=== PATIENT | female | born 1940 | race Caucasian/White ===

== ENCOUNTER → 2023-07-10 07:42 | Outpatient (REF) | payer MEDICARE, OTHER, SELFPAY ==
[2023-07-10 08:08] LABS: % Basophils 0.8 % (0-2); % Eosinophils 2.4 % (0-6); % Immature Granulocytes 0.4 % (0-0.5); % Lymphocytes 26.4 % (20.5-51.1); % Monocytes 10.2 % (1.7-9.3); % Neutrophils 59.8 % (42.2-75.2); Absolute Basophils 0.1 10^3/uL (0-0.2); Absolute Eosinophils 0.2 10^3/uL (0-0.7); Absolute Lymphocytes 1.9 10^3/uL (1.2-3.4); Absolute Monocytes 0.7 10^3/uL (0.1-0.6); Absolute Neutrophils 4.3 10^3/uL (1.4-6.5); Hematocrit 45.7 % (37.0-47.0); Mean Corp Hgb Conc. 32.8 g/dL (33.0-37.0); Mean Corpuscular Hgb 30.8 pg (27.0-31.0); Mean Corpuscular Volume 93.8 fL (81.0-99.0); Mean Platelet Volume 9.9 fL (7.4-10.4); Nucleated Red Blood Cells % 0 %; Platelet Count 147 10^3/uL (130-400); Red Blood Cell Count 4.87 10^6/uL (4.20-5.40); White Blood Cell Count 7.2 10^3/uL (4.8-10.8)
[2023-07-10 08:41] LABS: ALT (SGPT) 126 U/L (0-35); AST (SGOT) 60 U/L (14-36); Albumin 3.6 g/dl (3.5-5.0); Alkaline Phosphatase 108 U/L (38-126); Blood Urea Nitrogen 18 mg/dl (7-17); Calcium 8.6 mg/dl (8.4-10.2); Carbon Dioxide 30 mmol/L (22-30); Chloride 106 mmol/L (98-107); Glucose 130 mg/dl (70-99); HDL Cholesterol 83 mg/dl; LDL Cholesterol, Calculated 102 mg/dl; Potassium 4.3 mmol/L (3.5-5.1); Sodium 138 mmol/L (135-145); Total Bilirubin 0.9 mg/dl (0.2-1.3); Total Cholesterol 209 mg/dl (50-199); Total Protein 6.1 g/dl (6.3-8.2); Triglyceride 123 mg/dl (10-149); Very Low Density Lipoprotein 24 mg/dl (0-30); eGFR > 60.00
[2023-07-10 08:54] LABS: Glycohemoglobin (HgbA1c) 8.1 % (4.0-5.6)
== END ==
LOC: REG 07:42
PROVIDERS: ATTENDING PHYSICIAN Internal Medicine
DX: E11.69 Type 2 diabetes mellitus with other specified complication (principal); E78.5 Hyperlipidemia, unspecified; D50.0 Iron deficiency anemia secondary to blood loss (chronic); Z00.01 Encounter for general adult medical examination with abnormal findings
CPT/HCPCS: 36415; 80053; 80061; 83036; 85025

== ENCOUNTER → 2023-09-27 10:39 | Outpatient (REF) | payer MEDICARE, OTHER, SELFPAY | LOC: MRI 3T 10:39 | PROVIDERS: ATTENDING PHYSICIAN Orthopaedic Surgery; FAMILY PHYSICIAN Internal Medicine | DX: M25.552 Pain in left hip (principal) | CPT/HCPCS: 73721 ==

== ENCOUNTER 2023-10-04 19:32 | Emergency (ER) | payer MEDICARE, OTHER, SELFPAY ==
[2023-10-04 19:37] VITALS: BMI 25.2
[2023-10-04 19:39] VITALS: BP 172/90
[2023-10-04 20:00] VITALS: BP 153/73
--- NOTE | 2023-10-04 20:45 | ED.GENMED ---
History of Present Illness
<Avelina Marquez PA-C - Last Filed: 10/04/23 21:38>
General
Chief Complaint: Musculo-Skeletal Complaint
Source: patient
Exam Limitations: none
Time Seen by Provider: 10/04/23 19:42
Nursing documentation reviewed up to this point in time: agreed with
Travel History
Have you had any contact with someone who has COVID-19?: No
Do you have any symptoms of coronavirus? Fever > 100 degrees, chills, cough, shortness of breath, sore throat, loss of taste or smell, muscle aches, or headache?: No
History of Present Illness
History of Present Illness:
Patient is an 83-year-old female with past medical history of hyperlipidemia, DVT currently anticoagulated on Xarelto, who presents to the emergency department from home via EMS for evaluation of severe low back pain. Patient reports that she was
cleaning out her pantry today and was doing a lot of of heavy lifting, frequent bending, and movement that she does not typically do. She reports that she sat down to take a break and when she stood up again, she developed severe pain in her low
back, worse on the right. Patient reports that the pain does not seem to radiate anywhere else. Patient denies any bowel or bladder dysfunction, denies any saddle anesthesia, denies any paresthesias of her lower extremities. Patient reports that
she did take 1000 mg of Tylenol at noon today but without significant improvement in her pain. Patient reports the pain is better with rest and is much worse when she tries to stand or walk. Patient notes that she does know she has arthritis in
her back but denies any other chronic back problems. Patient denies recent fevers, chills, chest pain, shortness of breath, abdominal pain, nausea, vomiting, change in bowel habits. Patient denies any urinary symptoms. Patient reports that she
lives at home alone. She reports that 2 of her children lives 1 hour away.
Past History
<Avelina Marquez PA-C - Last Filed: 10/04/23 21:38>
Past History
ED Past Medical History: Hypercholesterolemia, Other (Restless leg syndrome) and Other (Factor V Leiden)
ED Past Surgical History: Gynecological
Social History
Tobacco: Non-smoker
Personal:
Living: with family
Review of Systems
<Avelina Marquez PA-C - Last Filed: 10/04/23 21:38>
Review of Systems
Allergies reviewed?: Yes
All Other Systems: ROS reviewed and negative except as documented in HPI and ROS
Constitutional: Reports no symptoms
EENT: Reports no symptoms
Respiratory: Reports no symptoms
Cardiac: Reports no symptoms
ABD/GI: Reports no symptoms
: Reports no symptoms
Musculoskeletal: Reports back pain
Skin: Reports itching (to the left wrist since working outside)
Neurological: Reports no symptoms
Endocrine: Reports no symptoms
Hematologic/Lymphatic: Reports no symptoms
Psychiatric: Reports no symptoms
Phy Exam
<Avelina Marquez PA-C - Last Filed: 10/04/23 21:38>
General Physical Exam
General Presentation: well appearing and no apparent distress
General Skin: warm and dry
General Habitus: normal
General Mental: alert
General Hydration: appears well hydrated
ENT Exam
ENT Exam: EOMI, pharynx normal, neck supple and normocephalic
Eye Exam
Eye Exam: PERRL, cornea clear and conjunctiva normal
Cardiovascular Exam
Cardiovascular Exam: regular rate/rhythm, no murmur, normal peripheral pulses and other (bilateral pretibial edema)
Pulmonary Exam
Pulmonary Exam: lungs clear, no respiratory distress, no rales, no crackles, no rhonchi, no stridor, no wheezing and no cough
Gastrointestinal Exam
Gastrointestinal Exam: normal bowel sounds, non tender, soft, no organomegaly, no pulsatile mass and non distended
Neurological Exam
Neurological Exam: alert, oriented x3, no motor deficits and speech normal
Musculoskeletal Exam
Musculoskeletal Exam: back pain (ttp to the midline of the lumbar spine and right SI joint as well as the right buttock, no ttp to the remainder of the RLE, normal strength with dorsiflexion and plantarflexion, 2+ DP pulses, sensation intact to
light touch distally)
Skin Exam
Skin Exam: normal color, warm/dry, no rash and no petechia
Psychiatric Exam
Psychiatric Exam: normal mood/affect
Course
<Avelina Marquez PA-C - Last Filed: 10/04/23 21:38>
Orders/Labs/Results
Orders:
Orders
10/04/23 21:23
Acetaminophen [Tylenol] 650 mg PO NOW STA
Morphine Sulfate 2 mg IV NOW STA
Lumbar Spine, 2 or 3 View [CR Lumbar Spine 2 Or 3 Views] Urgent
Comment:
Reason For Exam: low back pain
10/04/23 21:46
Basic Metabolic Panel Urgent
Complete Blood Count/With Diff Urgent
10/04/23 22:17
Hydrocortisone [Hydrocortisone 1% Cream] See Dose Instructions TOPICAL NOW STA
10/05/23 00:00
Case Management Consult ONCE
Case Management Consult: Other
Comment: HOME PT
10/05/23 00:00
Lidocaine [Lidocaine 4% Patch] 1 patch TOPICAL NOW STA
Abnormal Lab Results
10/04/23
21:46
MCH 31.6 H pg
(27.0-31.0)
MPV 10.5 H fL
(7.4-10.4)
Absolute Monos (auto) 1.0 H 10^3/uL
(0.1-0.6)
Monocytes % 13.2 H %
(1.7-9.3)
BUN 23 H mg/dl
(7-17)
Glucose 145 H mg/dl
(70-99)
10/04/23 21:46
10/04/23 21:46
Vital Signs
Initial and Last Documented VS:
Initial Vital Signs
Temp Pulse Resp BP Pulse Ox
97.1 F 71 16 172/90 95
10/04/23 19:39 10/04/23 19:39 10/04/23 19:39 10/04/23 19:39 10/04/23 19:39
Last Documented Vital Signs
Temp Pulse Resp BP Pulse Ox
97.1 F 71 16 167/90 95
10/04/23 19:39 10/04/23 19:39 10/04/23 19:39 10/04/23 21:51 10/04/23 21:51
<Juliana Schwab PA-C - Last Filed: 10/05/23 00:07>
Orders/Labs/Results
Orders:
Orders
10/04/23 21:23
Acetaminophen [Tylenol] 650 mg PO NOW STA
Morphine Sulfate 2 mg IV NOW STA
Lumbar Spine, 2 or 3 View [CR Lumbar Spine 2 Or 3 Views] Urgent
Comment:
Reason For Exam: low back pain
10/04/23 21:46
Basic Metabolic Panel Urgent
Complete Blood Count/With Diff Urgent
10/04/23 22:17
Hydrocortisone [Hydrocortisone 1% Cream] See Dose Instructions TOPICAL NOW STA
10/05/23 00:00
Case Management Consult ONCE
Case Management Consult: Other
Comment: HOME PT
10/05/23 00:00
Lidocaine [Lidocaine 4% Patch] 1 patch TOPICAL NOW STA
Abnormal Lab Results
10/04/23
21:46
MCH 31.6 H pg
(27.0-31.0)
MPV 10.5 H fL
(7.4-10.4)
Absolute Monos (auto) 1.0 H 10^3/uL
(0.1-0.6)
Monocytes % 13.2 H %
(1.7-9.3)
BUN 23 H mg/dl
(7-17)
Glucose 145 H mg/dl
(70-99)
10/04/23 21:46
10/04/23 21:46
Vital Signs
Initial and Last Documented VS:
Initial Vital Signs
Temp Pulse Resp BP Pulse Ox
97.1 F 71 16 172/90 95
10/04/23 19:39 10/04/23 19:39 10/04/23 19:39 10/04/23 19:39 10/04/23 19:39
Last Documented Vital Signs
Temp Pulse Resp BP Pulse Ox
97.1 F 71 16 167/90 95
10/04/23 19:39 10/04/23 19:39 10/04/23 19:39 10/04/23 21:51 10/04/23 21:51
<Juliana Schwab PA-C - Last Filed: 10/05/23 00:07>
*Critical Care Note
Total Time (30-74mins, 75-104mins- exclusive of procedures): Not Applicable
<Avelina Marquez PA-C - Last Filed: 10/04/23 21:38>
Update Note
Update Note:
Patient is an 83-year-old female who presents to the emergency department for evaluation of severe low back pain which started today after she was doing more bending and lifting than she does typically. Patient denies any specific injury or trauma.
On arrival, patient is hypertensive, afebrile. On exam, patient is well-appearing, she is in no acute distress, she has reproducible tenderness to palpation over the midline of her lumbar spine as well as the right SI joint and right buttock but
no tenderness to palpation to the right lower extremity, she has normal strength in the bilateral extremities and is neurovascularly intact. Patient lives at home alone and I am concerned that she may not be able to safely ambulate and therefore be
discharged tonight. Additionally, patient reports allergic reaction to oxycodone and tramadol and cannot take NSAIDs as she is on Xarelto. Therefore, will place IV, check basic labs, give Tylenol, lidocaine patch, and a small dose of morphine and
reassess. In addition, patient reports an itchy rash to her left wrist which she states started after she was working outside. Concern for mild contact dermatitis, possible Rhus dermatitis, will apply hydrocortisone cream to the area.
<Juliana Schwab PA-C - Last Filed: 10/05/23 00:07>
Update Note
Update Note:
Patient is an 83-year-old female who presents to the emergency department for evaluation of severe low back pain which started today after she was doing more bending and lifting than she does typically. Patient denies any specific injury or trauma.
On arrival, patient is hypertensive, afebrile. On exam, patient is well-appearing, she is in no acute distress, she has reproducible tenderness to palpation over the midline of her lumbar spine as well as the right SI joint and right buttock but
no tenderness to palpation to the right lower extremity, she has normal strength in the bilateral extremities and is neurovascularly intact. Patient lives at home alone and I am concerned that she may not be able to safely ambulate and therefore be
discharged tonight. Additionally, patient reports allergic reaction to oxycodone and tramadol and cannot take NSAIDs as she is on Xarelto. Therefore, will place IV, check basic labs, give Tylenol, lidocaine patch, and a small dose of morphine and
reassess. In addition, patient reports an itchy rash to her left wrist which she states started after she was working outside. Concern for mild contact dermatitis, possible Rhus dermatitis, will apply hydrocortisone cream to the area.
Received signout at 2100
Patient with back pain and chronic right hip pain after doing some housework more than usual
she had MRI of her hip 10 days ago and doesn't nkow results but is followed by ortho
her heriberto ain is chronic
her lower back pain feels acute but no cauda equina
was having a lot of pain with movement
received morephine and feeling much better
was able to get up with walker and steaidly walk
she doesn't tolerate oral opiates and is anticoagulated so this would not be a reasonable choice for her. She did formally take diclofenac but was counseled on not taking that in the setting of her Eliquis use. Patient has borderline diabetes and
thus should not trial prednisone at this point. Patient's daughter is going to stay with her and they feel comfortable taking her home I placed a case management consult so that home PT may be arranged. Patient is feeling comfortable with this
decision.
Will recommend Tylenol 3 times a day, lidocaine patches 12 hours on, 12 hours off. Return precautions. I did review the patient's labs showing her mild elevation of her BUN, her potassium was hemolyzed but patient's creatinine is normal she has no
symptoms regarding her potassium and thus it was not rechecked.
I did review the patient's MRI from 10 days ago and she does have a copy of the report showing several issues within the muscles and tendons in her right hip. There is nothing that requires urgent treatment
ED Attending Note
<Avelina Marquez PA-C - Last Filed: 10/04/23 21:38>
-
Portions of this chart may have been created with voice recognition software.� Occasional wrong word or��sound alike� substitutions may have occurred due to the inherent limitations of voice recognition software.
Discharge Plan
Departure
Patient Disposition: Home (Routine Discharge)
Date of Disposition: 10/04/23
Time of Disposition: 23:55
Patient with high blood pressure during this ER visit?: Yes
Condition: Fair
Covid-19: Not Applicable
Discharge Problem:
DDD (degenerative disc disease), lumbar, Muscle strain, Chronic hip pain
Instructions: Degenerative Disc Disease ED, BLOOD PRESSURE
Prescriptions:
New
lidocaine 5 % adhesive patch,medicated
1 patch topical DAILY Qty: 15 0RF
No Action
Restasis 0.05% Ophthalmic Emulsion:
1 drp BOTH EYES BID
magnesium oxide 500 MG capsule
500 mg PO DAILY
Cranberry
1 tab PO PRN PRN (Reason: urinary tract infection)
ropinirole 0.25 MG tablet
0.25 mg PO TID
Patient Comments:
Pt takes at 17:00, 20:00, and 21:00
ropinirole 1 MG tablet
1 mg PO QPM
Patient Comments:
Pt takes at 21:00.
docusate sodium 100 MG capsule
100 mg PO BID 0RF
acetaminophen 500 MG tablet
1,000 mg PO Q8H Qty: 60 0RF
Rx Instructions:
Do not exceed >3000 mg daily.
cyclosporine [Restasis] 0.05 % Dropperette
1 drp OPHTHALMIC (EYE) Q12H
cephalexin 500 mg Capsule
500 mg PO QID
Eliquis 5 mg Tablet
5 mg PO BID
Referrals:
Cain Tolentino MD [Family Provider] - Follow up in 2-3 days
Activity Restrictions/Additional Instructions:
YOUR XRAY SHOWS SEVERE DISCOGENIC DISEASE BETWEEN L4/L5 AND L5/S1 BUT NO OBVIOUS FRACTURES
YOU HAVE BAD ARHTRITIS IN YOUR SPINE WHICH CAUSES INFLAMMATION WHEN YOU LIFT TOO MUCH
YOU SHOULD TAKE TYLENOL 2 EXTRA STRENGTH 3 TIMES A DAY NEEDED FOR PAIN (NO MORE THAN 3000 MG IN 24 HOURS)
LIDOCAINE PATCH 1 OR 2 EVERY 12 HOURS, LEAVE ON FOR 12 HOURS, OFF FOR 12 HOURS
WHEN THE PATCHES ARE OFF, ICE OR HEAT
FOLLOW UP WITH ORTHOPEDICS
RETURN FOR; LEG WEAKNESS, NUMBNESS, FALLS, INABILITY TO WALK, FEVER, INCONTINENCE
IF YOU CANNOT WALK AT HOME, YOU CAN RETURN
I HAVE SENT A MESSAGE TO CASE MANAGEMENT FOR POSSIBLE HOME PHYSICAL THERAPY
Interventions
Interventions:
*Risk Screen - Suicide Last Done: 10/04/23 19:40
*General Assessment Last Done: 10/04/23 19:40
*Neglect/Abuse Screening Last Done: 10/04/23 19:40
*ED COVID-19 Vaccine History Last Done: 10/04/23 19:39
ED-Musculoskeletal Assessment Last Done: 10/04/23 19:42
Discharge Date and Time
Print Language: WELSH
[2023-10-04] MEDS: TYLENOL 650 MG PO (21:50)
[2023-10-04] MEDS: MORPHINE SULFATE 2 MG IV (21:50)
[2023-10-04 21:51] VITALS: BP 167/90
[2023-10-04 21:53] LABS: % Basophils 0.8 % (0-2); % Eosinophils 2.7 % (0-6); % Immature Granulocytes 0.3 % (0-0.5); % Lymphocytes 25.4 % (20.5-51.1); % Monocytes 13.2 % (1.7-9.3); % Neutrophils 57.6 % (42.2-75.2); Absolute Basophils 0.1 10^3/uL (0-0.2); Absolute Eosinophils 0.2 10^3/uL (0-0.7); Absolute Neutrophils 4.5 10^3/uL (1.4-6.5); Hematocrit 41.3 % (37.0-47.0); Hemoglobin 14.2 g/dL (12.0-16.0); Mean Corp Hgb Conc. 34.4 g/dL (33.0-37.0); Mean Corpuscular Hgb 31.6 pg (27.0-31.0); Mean Corpuscular Volume 91.8 fL (81.0-99.0); Mean Platelet Volume 10.5 fL (7.4-10.4); Nucleated Red Blood Cells % 0 %; Platelet Count 176 10^3/uL (130-400); Red Cell Dist. Width 13.2 % (11.5-14.5); White Blood Cell Count 7.9 10^3/uL (4.8-10.8)
[2023-10-04 22:06] LABS: Blood Urea Nitrogen 23 mg/dl (7-17); Calcium 9.2 mg/dl (8.4-10.2); Carbon Dioxide 24 mmol/L (22-30); Chloride 106 mmol/L (98-107); Estimated Creatinine Clearance 49 ml/min; Glucose 145 mg/dl (70-99); Sodium 137 mmol/L (135-145); eGFR > 60.00
[2023-10-05] MEDS: LIDOCAINE 4% PATCH 1 PATCH TOPICAL (00:18)
--- NOTE | 2023-10-05 17:34 | CM ---
Cm received consult for home PT. CM left message for patient to updated that referral to [facility] was being made.
CM sent referral to [facility] via [facility].
== END 2023-10-05 00:30 | disposition home or self-care (01) ==
LOC: EMR 19:32
PROVIDERS: Physician Assistant Medical; EMERGENCY PHYSICIAN Emergency Medicine; FAMILY PHYSICIAN Internal Medicine
DX: S39.012A Strain of muscle, fascia and tendon of lower back, initial encounter (principal); X50.0XXA Overexertion from strenuous movement or load, initial encounter; M51.36 Other intervertebral disc degeneration, lumbar region; G89.29 Other chronic pain; M25.551 Pain in right hip; R21 Rash and other nonspecific skin eruption; E78.00 Pure hypercholesterolemia, unspecified
CPT/HCPCS: 99284; 96374; 72100; 80048; 85025

== ENCOUNTER → 2023-11-12 07:33 | Outpatient (REF) | payer MEDICARE, OTHER, SELFPAY ==
[2023-11-12 09:04] LABS: ALT (SGPT) 35 U/L (0-35); AST (SGOT) 34 U/L (14-36); Alkaline Phosphatase 112 U/L (38-126); Direct Bilirubin 0.2 mg/dl (0.0-0.4); Glucose 113 mg/dl (70-99); HDL Cholesterol 51 mg/dl; LDL Cholesterol, Calculated 92 mg/dl; Total Bilirubin 0.5 mg/dl (0.2-1.3); Total Cholesterol 176 mg/dl (50-199); Total Protein 6.3 g/dl (6.3-8.2); Triglyceride 168 mg/dl (10-149); Very Low Density Lipoprotein 33 mg/dl (0-30)
[2023-11-12 11:04] LABS: Glycohemoglobin (HgbA1c) 6.5 % (4.0-5.6)
== END ==
LOC: REG 07:33
PROVIDERS: ATTENDING PHYSICIAN Internal Medicine
DX: Z00.00 Encounter for general adult medical examination without abnormal findings (principal); E11.69 Type 2 diabetes mellitus with other specified complication; E78.5 Hyperlipidemia, unspecified
CPT/HCPCS: 36415; 80061; 80076; 82947; 83036

== ENCOUNTER → 2023-11-13 11:36 | Outpatient (REF) | payer MEDICARE, OTHER, SELFPAY | LOC: WDC 11:36 | PROVIDERS: ATTENDING PHYSICIAN Internal Medicine | DX: Z12.31 Encounter for screening mammogram for malignant neoplasm of breast (principal) | CPT/HCPCS: 77063; 77067 ==

== ENCOUNTER 2025-03-10 17:46 | Emergency (ER) | payer MEDICARE, OTHER, SELFPAY ==
[2025-03-10 17:49] VITALS: BP 178/99
--- NOTE | 2025-03-10 19:15 | ED.GENMED ---
History of Present Illness
General
Chief Complaint: DVT/Possible Blood Clot
Source: patient and family
Exam Limitations: none
Time Seen by Provider: 03/10/25 19:04
Nursing documentation reviewed up to this point in time: agreed with
History of Present Illness
History of Present Illness:
85 female referred by her transportation analyst due to an equivocal bowl right lower extremity ultrasound at [facility] last evening she has been on Xarelto for 3 years 20 mg said recurrent clots factor V Leiden no PEs no fever cannot take Eliquis because it
caused hair loss never been on warfarin
Past History
Past History
ED Past Medical History: Hypercholesterolemia, Other (Restless leg syndrome) and Other (Factor V Leiden)
ED Past Surgical History: Gynecological
Social History
Tobacco: Non-smoker
Alcohol: None
Personal:
Living: with family
Employment: Retired
Review of Systems
Review of Systems
All Other Systems: Not applicable
Constitutional: Denies fever or fatigue
Respiratory: Denies trouble breathing
Phy Exam
Physical Exam
Physical Exam:
Physical Exam
General: no apparent distress, not acutely ill
Neck: No jaundice
Heart: s1/s2 regular rate and rhythm, no murmur. equal radial pulses.
Lungs: no acute respiratory distress. clear bilaterally
Neuro: alert and oriented. no focal neurological deficits
Skin: no rash
Psychiatric: well kept. interactive and cooperative
Extremities: Minimal swelling of the right lower extremity
Course
Orders/Labs/Results
Orders:
Orders
03/10/25 18:03
Venous Doppler Lwr Ext Rt [US Periph Venous LOWER Ext RT] Urgent
Comment:
Reason For Exam: pain
Vital Signs
Initial and Last Documented VS:
Initial Vital Signs
Temp Pulse Resp BP Pulse Ox
98.4 F 77 18 178/99 97
03/10/25 17:49 03/10/25 17:49 03/10/25 17:49 03/10/25 17:49 03/10/25 17:49
Last Documented Vital Signs
Temp Pulse Resp BP Pulse Ox
98.4 F 77 18 178/99 97
03/10/25 17:49 03/10/25 17:49 03/10/25 17:49 03/10/25 17:49 03/10/25 19:15
MDM/Problems Addressed
Differential Diagnosis Includes:
dvt stain edema
MDM/Problems Addressed:
leg swelling
Chronic conditions affecting care:
dvt factort 5
Acute Exacerbation and/or Progression of Chronic Illness:
factor 5
*Radiology
Radiology exam reviewed: radiology read reviewed
*Pulse Oximetry
SaO2: 97
Oxygen Mode of Delivery: Room air
Patient hypoxic: no
*Critical Care Note
Total Time (30-74mins, 75-104mins- exclusive of procedures): Not Applicable
Update Note
Update Note:
8:10 PM update ultrasound looks like a chronic DVT reviewed with referring transportation analyst discharge with no change to Xarelto
ED Attending Note
-
Portions of this chart may have been created with voice recognition software.� Occasional wrong word or��sound alike� substitutions may have occurred due to the inherent limitations of voice recognition software.
Discharge Plan
Departure
Patient Disposition: Home (Routine Discharge)
Date of Disposition: 03/10/25
Time of Disposition: 20:14
Patient with high blood pressure during this ER visit?: Yes
Condition: Good
Discharge Problem:
Chronic deep vein thrombosis (DVT)
Instructions: Deep Vein Thrombosis (Blood Clots in the Legs) (DC)
Prescriptions:
No Action
Restasis 0.05% Ophthalmic Emulsion:
1 drp BOTH EYES BID
magnesium oxide 500 MG capsule
500 mg PO DAILY
Cranberry
1 tab PO PRN PRN (Reason: urinary tract infection)
ropinirole 0.25 MG tablet
0.25 mg PO TID
Patient Comments:
Pt takes at 17:00, 20:00, and 21:00
ropinirole 1 MG tablet
1 mg PO QPM
Patient Comments:
Pt takes at 21:00.
docusate sodium 100 MG capsule
100 mg PO BID 0RF
acetaminophen 500 MG tablet
1,000 mg PO Q8H Qty: 60 0RF
Rx Instructions:
Do not exceed >3000 mg daily.
cyclosporine [Restasis] 0.05 % Dropperette
1 drp OPHTHALMIC (EYE) Q12H
cephalexin 500 mg Capsule
500 mg PO QID
Eliquis 5 mg Tablet
5 mg PO BID
lidocaine 5 % adhesive patch,medicated
1 patch topical DAILY Qty: 15 0RF
Activity Restrictions/Additional Instructions:
Continue Xarelto
Follow-up with Dr. Sommers and/or your family doctor
Interventions
Interventions:
*Risk Screen - Suicide Last Done: 03/10/25 17:49
*General Assessment Last Done: 03/10/25 17:49
*Neglect/Abuse Screening Last Done: 03/10/25 17:49
Discharge Date and Time
Print Language: BULGARIAN
[2025-03-10 20:31] VITALS: BP 168/95
== END 2025-03-10 20:41 | disposition home or self-care (01) ==
LOC: EMR 17:46
PROVIDERS: EMERGENCY PHYSICIAN Emergency Medicine; FAMILY PHYSICIAN Internal Medicine; REFERRING PHYSICIAN Internal Medicine Hematology & Oncology
DX: I82.511 Chronic embolism and thrombosis of right femoral vein (principal); I82.531 Chronic embolism and thrombosis of right popliteal vein; D68.51 Activated protein C resistance; E78.00 Pure hypercholesterolemia, unspecified; G25.81 Restless legs syndrome; Z79.01 Long term (current) use of anticoagulants
CPT/HCPCS: 99284; 93971

== ENCOUNTER 2025-03-27 11:15 | Emergency (ER) | payer MEDICARE, OTHER, SELFPAY ==
[2025-03-27 11:21] VITALS: BP 171/96
[2025-03-27 12:46] VITALS: BP 153/86
--- NOTE | 2025-03-27 12:58 | ED.MUSCINJ ---
HPI-Injury
General
Chief Complaint: Musculo-Skeletal Complaint
Source: patient and family (Daughter at bedside)
Exam Limitations: none
Time Seen by Provider: 03/27/25 11:44
Nursing documentation reviewed up to this point in time: agreed with
History of Present Illness-Injury
Initial Injury comments:
85 yo female with h/o DVT left leg on Xarelto past 2 years, HLD, Factor V Leiden, presents with a swollen, red, and extremely sensitive right pinky toe, reporting excruciating pain upon any contact. The symptoms began several days ago. Went to
urgent care 3 days ago, had a negative x-ray other than showing arthritis and started on Augmentin which she has had a total of 4 doses. No recollection of injury. She denies fever or chills. At this time pain is 4/10 but with any touch or movement
it is severe.
Past History
Past History
ED Past Medical History: Hypercholesterolemia, Other (Restless leg syndrome), Other (Factor V Leiden) and Other (DVT LLE, on Xarelto)
ED Past Surgical History: Gynecological, Orthopedic and Urological
Social History
Tobacco: Non-smoker
Alcohol: None
Personal:
Living: with family
Employment: Retired
Review of Systems
Review of Systems
Allergies reviewed?: Yes
All Other Systems: ROS reviewed and negative except as documented in HPI and ROS
Phy Exam
Physical Exam
Physical Exam:
GENERAL: No acute distress. A&Ox3.
CONSTITUTIONAL: Afebrile.
EYES: clear, conjunctivae normal
ENMT: moist mucus membranes, Pharynx nl
RESPIRATORY: Regular respirations, nonlabored, lungs clear.
CARDIOVASCULAR: Regular rate and rhythm, no murmurs, no rubs.
GI: Soft, nontender, normal BS
MUSCULOSKELETAL: Moves with ease. Well perfused. Right foot 4th and 5th toes exquisitely tender to touch. Mild redness, mild swelling. Toes are mildly erythematous, skin is intact, surrounding skin is normal.
SKIN: Warm, dry, pink
PSYCH: Normal mood and affect. Well kept, interactive and appropriate
NEUROLOGIC: Awake, alert and oriented. No focal neurological deficits ri
Injury Course
Orders/Labs/Results
Orders:
Orders
03/27/25 12:29
Foot, Right 3 View [CR Foot - Right Min 3 Views] Urgent
Comment:
Reason For Exam: att toes 4 and 5 red, swollen, painful
03/27/25 12:44
CRP [C-Reactive Protein] Urgent
Complete Blood Count/With Diff Urgent
Comprehensive Metabolic Panel Urgent
Sed Rate [Erythrocyte Sed Rate] Urgent
Uric Acid Urgent
03/27/25 13:58
Prednisone [Deltasone] 40 mg PO NOW STA
Abnormal Lab Results
03/27/25
12:44
MCHC 32.9 L g/dL
(33.0-37.0)
Absolute Monos (auto) 0.9 H 10^3/uL
(0.1-0.6)
Monocytes % 14.1 H %
(1.7-9.3)
Carbon Dioxide 31 H mmol/L
(22-30)
BUN 28 H mg/dl
(7-17)
Glucose 103 H mg/dl
(70-99)
ALT 37 H U/L
(0-35)
03/27/25 12:44
03/27/25 12:44
MDM/Problems Addressed
Differential Diagnosis Includes:
osteoarthritis, fracture, cellulitis, gout
MDM/Problems Addressed:
85 yo female with h/o DVT left leg on Xarelto past 2 years, HLD, Factor V Leiden, presents with a swollen, red, and extremely sensitive right pinky toe, reporting excruciating pain upon any contact. The symptoms began several days ago. Went to
urgent care 3 days ago, had a negative x-ray other than showing arthritis and started on Augmentin which she has had a total of 4 doses. No recollection of injury. She denies fever or chills. At this time pain is 4/10 but with any touch or movement
it is severe.
Afebrile, NAD
1:45 PM:
CBC normal
CMP with no clinically significant abnormality
uric acid is normal
CRP normal
Contacted Dr. Gleason, Podiatry astronomy instructor who will see pt in the a.m.
Pt wearing her shoes comfortably and ambulating well.
*Pulse Oximetry
SaO2: 98
Oxygen Mode of Delivery: Room air
Patient hypoxic: not evaluated
*Critical Care Note
Total Time (30-74mins, 75-104mins- exclusive of procedures): Not Applicable
ED Attending Note
-
Portions of this chart may have been created with voice recognition software.� Occasional wrong word or��sound alike� substitutions may have occurred due to the inherent limitations of voice recognition software.
Discharge Plan
Departure
Patient Disposition: Home (Routine Discharge)
Date of Disposition: 03/27/25
Time of Disposition: 13:59
Patient with high blood pressure during this ER visit?: No
Condition: Good
Discharge Problem:
Pain in toe of right foot
Instructions: Osteoarthritis, Cellulitis (skin infection) in adults - ED (DC)
Prescriptions:
New
prednisone 20 mg tablet
40 mg PO DAILY Qty: 6 0RF
No Action
Restasis 0.05% Ophthalmic Emulsion:
1 drp BOTH EYES BID
magnesium oxide 500 MG capsule
500 mg PO DAILY
Cranberry
1 tab PO PRN PRN (Reason: urinary tract infection)
ropinirole 0.25 MG tablet
0.25 mg PO TID
Patient Comments:
Pt takes at 17:00, 20:00, and 21:00
ropinirole 1 MG tablet
1 mg PO QPM
Patient Comments:
Pt takes at 21:00.
docusate sodium 100 MG capsule
100 mg PO BID 0RF
acetaminophen 500 MG tablet
1,000 mg PO Q8H Qty: 60 0RF
Rx Instructions:
Do not exceed >3000 mg daily.
cyclosporine [Restasis] 0.05 % Dropperette
1 drp OPHTHALMIC (EYE) Q12H
cephalexin 500 mg Capsule
500 mg PO QID
Eliquis 5 mg Tablet
5 mg PO BID
lidocaine 5 % adhesive patch,medicated
1 patch topical DAILY Qty: 15 0RF
Referrals:
Cain Tolentino MD [Family Provider, Internal Medicine]
Joseluis Gleason DPM [Specified Professional Personl, Podiatry] - Next open appointment
Activity Restrictions/Additional Instructions:
As we discussed, your blood work shows nothing worrisome.
This may be a combination of early infection and inflammation, you are being treated for both.
I sent a prescription to your pharmacy for Prednisone (steroid) to take daily for 4 days
Call the Podiatry office tomorrow for next available appointment. Dr. Gleason is aware you will be calling.
Tylenol as needed for pain
Interventions
Interventions:
*Risk Screen - Suicide Last Done: 03/27/25 11:21
*General Assessment Last Done: 03/27/25 12:40
*Neglect/Abuse Screening Last Done: 03/27/25 11:21
*ED- Fall Risk Assessment Last Done: 03/27/25 12:40
*ED COVID-19 Vaccine History Last Done: 03/27/25 12:40
*ED Influenza Vaccine History Last Done: 03/27/25 12:40
*Nursing Disposition Last Done: 03/27/25 14:20
ED-Musculoskeletal Assessment Last Done: 03/27/25 12:40
Discharge Date and Time
Discharge Date/Time: 03/27/25 14:21
Print Language: GREEK
[2025-03-27 13:01] LABS: Hematocrit 43.1 % (37.0-47.0); Hemoglobin 14.2 g/dL (12.0-16.0); Mean Corp Hgb Conc. 32.9 g/dL (33.0-37.0); Mean Corpuscular Volume 92.9 fL (81.0-99.0); Nucleated Red Blood Cells % 0 %; Platelet Count 172 10^3/uL (130-400); Red Cell Dist. Width 14.0 % (11.5-14.5)
[2025-03-27 13:15] LABS: ALT (SGPT) 37 U/L (0-35); AST (SGOT) 29 U/L (14-36); Albumin 3.9 g/dl (3.5-5.0); Alkaline Phosphatase 83 U/L (38-126); Blood Urea Nitrogen 28 mg/dl (7-17); Calcium 9.4 mg/dl (8.4-10.2); Carbon Dioxide 31 mmol/L (22-30); Chloride 103 mmol/L (98-107); Glucose 103 mg/dl (70-99); Potassium 4.3 mmol/L (3.5-5.1); Sodium 135 mmol/L (135-145); Total Protein 6.6 g/dl (6.3-8.2); Uric Acid 5.7 mg/dl (2.5-6.2); eGFR > 60.00
[2025-03-27] MEDS: DELTASONE 40 MG PO (14:09)
[2025-03-27 14:14] LABS: C-Reactive Protein 9.60 mg/L (0.0-10.00)
== END 2025-03-27 14:21 | disposition home or self-care (01) ==
LOC: EMR 11:15
PROVIDERS: Registered Nurse; EMERGENCY PHYSICIAN Emergency Medicine; FAMILY PHYSICIAN Internal Medicine
DX: M79.674 Pain in right toe(s) (principal); M19.071 Primary osteoarthritis, right ankle and foot; E78.00 Pure hypercholesterolemia, unspecified; D68.51 Activated protein C resistance; G25.81 Restless legs syndrome; Z79.01 Long term (current) use of anticoagulants; Z86.718 Personal history of other venous thrombosis and embolism
CPT/HCPCS: 99284; 73630; 80053; 84550; 85025; 85652; 86140

== ENCOUNTER → 2025-04-13 16:05 | Outpatient (REF) | payer MEDICARE, OTHER, SELFPAY ==
[2025-04-13 17:30] LABS: Hematocrit 41.5 % (37.0-47.0); Hemoglobin 14.0 g/dL (12.0-16.0); Mean Corp Hgb Conc. 33.7 g/dL (33.0-37.0); Mean Corpuscular Volume 93.5 fL (81.0-99.0); Nucleated Red Blood Cells % 0 %; Platelet Count 120 10^3/uL (130-400); Red Cell Dist. Width 14.1 % (11.5-14.5)
[2025-04-13 17:44] LABS: Blood Urea Nitrogen 15 mg/dl (7-17); Calcium 8.8 mg/dl (8.4-10.2); Iron 51 ug/dl (37-170); Magnesium 2.3 mg/dl (1.6-2.3); Potassium 3.9 mmol/L (3.5-5.1); Uric Acid 4.5 mg/dl (2.5-6.2)
[2025-04-13 17:49] LABS: C-Reactive Protein 23.00 mg/L (0.0-10.00)
[2025-04-13 17:53] LABS: Total Iron Binding Capacity 260 ug/dl (265-497)
[2025-04-14 13:46] LABS: Rheumatoid Agglutinin Less Than 10 IU (<10 IU)
== END ==
LOC: REG 16:05
PROVIDERS: ATTENDING PHYSICIAN Internal Medicine
DX: M25.50 Pain in unspecified joint (principal); E11.9 Type 2 diabetes mellitus without complications; I10 Essential (primary) hypertension; R25.2 Cramp and spasm; G25.81 Restless legs syndrome
CPT/HCPCS: 36415; 82310; 82550; 82565; 83540; 83550; 83735; 84132; 84520; 84550; 85025; 85652; 86038; 86140; 86430; 86618

== ENCOUNTER 2025-04-25 19:26 | Observation (INO) | payer MEDICARE, OTHER, SELFPAY ==
[2025-04-25] VITALS (8 sets, daily range): BP systolic 120–181; BP diastolic 80–110; BMI 25.7
[2025-04-25 13:58] LABS: Glucose - Point of Care 423 mg/dl (70-99)
[2025-04-25 14:23] LABS: Venous Blood Gas B.E. 3.6 mmol/L (-4 to +4); Venous Blood Gas O2 Sat % 81.1 %
[2025-04-25 14:26] LABS: Hematocrit 45.9 % (37.0-47.0); Hemoglobin 15.1 g/dL (12.0-16.0); Mean Corp Hgb Conc. 32.9 g/dL (33.0-37.0); Mean Corpuscular Volume 90.5 fL (81.0-99.0); Nucleated Red Blood Cells % 0 %; Platelet Count 190 10^3/uL (130-400); Red Cell Dist. Width 13.9 % (11.5-14.5)
[2025-04-25 14:55] LABS: ALT (SGPT) 52 U/L (0-35); AST (SGOT) 29 U/L (14-36); Albumin 3.8 g/dl (3.5-5.0); Alkaline Phosphatase 98 U/L (38-126); Blood Urea Nitrogen 35 mg/dl (7-17); Calcium 9.1 mg/dl (8.4-10.2); Carbon Dioxide 28 mmol/L (22-30); Chloride 99 mmol/L (98-107); Glucose 475 mg/dl (70-99); Potassium 4.6 mmol/L (3.5-5.1); Sodium 131 mmol/L (135-145); Total Protein 6.3 g/dl (6.3-8.2); eGFR 48.63
--- NOTE | 2025-04-25 17:02 | ED.GENMED ---
History of Present Illness
General
Chief Complaint: Blood Sugar Problem
Source: patient and family
Exam Limitations: none
Time Seen by Provider: 04/25/25 16:19
Nursing documentation reviewed up to this point in time: agreed with
History of Present Illness
History of Present Illness:
Patient with history of 'prediabetes', presents to ED secondary to 2-day history of generalized weakness, fatigue, and feeling unstable when walking, with feeling of 'wobbly' sensation. Patient reports checking her blood sugar at home this morning
which was initially 300. When it was checked later this morning, it was greater than 600 on multiple occasions. Spoke with primary care physician who advised patient come to ED for an evaluation. Patient does report having finished 7-day of
tapered dose of prednisone recently secondary to 'inflammation' in her legs. Denies fever or chills. Denies coughing. Denies chest pain or shortness of breath. Denies nausea, vomiting, or diarrhea. Denies dizziness. Denies headache. Denies
blurred vision. Denies loss of sensation or focal weakness. Denies difficulty with speech. Of note, patient does admit drinking of water at home. Denies smoking. Denies drinking alcohol. Denies recent illness. No recent travel. Denies recent
change in medications or diet.
Past History
Past History
ED Past Medical History: Hypercholesterolemia, Other (Restless leg syndrome), Other (Factor V Leiden) and Other (DVT LLE, on Xarelto)
ED Past Surgical History: Gynecological, Orthopedic and Urological
Social History
Tobacco: Non-smoker
Alcohol: None
Personal:
Living: with family
Employment: Retired
Review of Systems
Review of Systems
Allergies reviewed?: Yes
All Other Systems: ROS reviewed and negative except as documented in HPI and ROS
Constitutional: Reports no symptoms; Denies fever or chills
Respiratory: Reports no symptoms; Denies cough or trouble breathing
Cardiac: Reports no symptoms; Denies chest pain or palpitations
ABD/GI: Reports no symptoms; Denies nausea, vomiting or diarrhea
Musculoskeletal: Reports no symptoms
Skin: Reports no symptoms
Neurological: Reports weakness; Denies dizzy, headache or numbness
Phy Exam
Physical Exam
Physical Exam:
Physical Exam
General: no apparent distress, not acutely ill. afebrile
Head: nc/at. eomi
Neck: supple. normal range of motion
Heart: s1/s2 regular rate and rhythm
Lungs: no acute respiratory distress. clear bilaterally
Abdomen: normal bowel sounds. not tender.
Neuro: alert and oriented x 3. no focal sensory/motor deficit. normal speech.
Skin: no rash
Psychiatric: well kept. interactive and cooperative
Extremities: no edema. no calf tenderness.
Course
Orders/Labs/Results
Orders:
Orders
04/25/25 14:02
B-Hydroxybutyrate Urgent
Complete Blood Count/With Diff Urgent
Comprehensive Metabolic Panel Urgent
Glycohemoglobin (HgbA1c) Urgent
Magnesium Urgent
Comment: ADD ON
TSH Reflex To Free T4 Urgent
Comment: ADD ON
Venous Blood Gas Urgent
%Oxygen/Room Air: 95
Comment: r/o DKA
04/25/25 Dinner
2000 calorie (17 carb) Diabetic
At Your Request: Full Participation
04/25/25 16:47
Add On- LAB Urgent
Tests Added?: magnesium, TSH to reflex Free T4, hemoglobin A1C
04/25/25 16:48
CT Head W/o Iv Contrast Urgent
Comment:
Reason For Exam: ataxia
04/25/25 16:50
0.9% Sodium Chloride 1000 ml [Nss] 1,000 ml IV BOLUS
04/25/25 19:08
Insulin Aspart [NOVOLOG vial] 10 units SC NOW STA
04/25/25 19:10
Admit/Transfer Patient As Directed
Co-Sign Provider:
Level of Care: Observation services
Assign to:: Telemetry
Physician / Group: Htay
Diagnosis: Hyperglycemia
Reason for Telemetry: CVA/TIA
Date to Stop Telemetry: 04/28/25
Time to Stop Telemetry: 11:00
04/25/25 19:11
PRN Pain Medication Management As Directed
May give lesser potent ordered pain med per pt: Yes
preference::
Protocol:: Medication orders for pain may be administered in a
manner that supports deferring to patient preference
when the pt is:
- Requesting an ordered lesser potent pain medication.
Least to most potent pain medications are defined
as: acetaminophen < NSAID < tramadol < opioids
(morphine, oxycodone, hydromorphone).
- Requesting a lesser dose of the same medication IF
ORDERED.
- Requesting a less intrusive route of administration
if both routes are prescribed by the provider (PO <
IV).
04/25/25 19:12
Code Status As Directed
Resuscitation Status: Full Code
04/25/25 20:10
0.9% Sodium Chloride 1000 ml [Nss] 1,000 ml IV 80 mls/hr
Acetaminophen [Tylenol] 650 mg PO Q4HPRN PRN
Dextrose 50%-Water [Dextrose 50% Syringe] 12.5 grams IV [id number] PRN
Glucagon [GlucaGen] 1 mg IM PRN PRN
Ropinirole [Requip] 1 mg PO BID
04/25/25 20:10
Activity As Directed
Activity Level: Out of Bed-Early Mobility
With Assistance
Bedside Glucose Monitoring As Directed
Frequency: AC&HS
Additional Instructions:: Change to q6h if pt on TPN, tube feeding or not eating
I&O [Intake/ Output] As Directed
Frequency: q12h
Vital Signs As Directed
Frequency: Per unit guidelines
Ot Eval And Treat Routine
Pt Eval And Treat Routine
Activity Level: Out of Bed-Early Mobility
04/26/25 06:00
Basic Metabolic Panel IN AM
04/26/25 07:30
Insulin Aspart Corrective Low [Novolog Flexpen-Low Resistance] See Protocol SC AC
04/26/25 08:00
Ezetimibe [Zetia] 10 mg PO DAILY
Rivaroxaban [Xarelto] 20 mg PO DAILY
04/26/25 18:00
ropinirole 4 mg PO QPM
04/28/25 11:00
DC Protocol for Telemetry ONCE
Abnormal Lab Results
04/25/25 04/25/25 04/25/25
13:56 14:02 19:20
MCHC 32.9 L g/dL
(33.0-37.0)
MPV 11.0 H fL
(7.4-10.4)
Absolute Monos (auto) 0.8 H 10^3/uL
(0.1-0.6)
Lymphocytes % 17.5 L %
(20.5-51.1)
Monocytes % 11.3 H %
(1.7-9.3)
VBG pCO2 49 H mmHg
(35-48)
VBG HCO3 29.7 H mmol/L
(22-27)
Sodium 131 L mmol/L
(135-145)
BUN 35 H mg/dl
(7-17)
Creatinine 1.1 H mg/dL
(0.6-1.0)
Glucose 475 H* mg/dl
(70-99)
ALT 52 H U/L
(0-35)
POC Glucose 423 H mg/dl 340 H mg/dl
(70-99) (70-99)
04/25/25 14:02
04/25/25 14:02
Vital Signs
Initial and Last Documented VS:
Initial Vital Signs
Temp Pulse Resp BP Pulse Ox
98.6 F 71 19 154/86 94
04/25/25 13:53 04/25/25 13:53 04/25/25 13:53 04/25/25 13:53 04/25/25 13:53
Last Documented Vital Signs
Temp Pulse Resp BP Pulse Ox
98.6 F 65 16 152/80 96
04/25/25 13:53 04/25/25 20:00 04/25/25 20:00 04/25/25 20:00 04/25/25 19:37
MDM/Problems Addressed
MDM/Problems Addressed:
Patient ambulating in ED with unsteady gait - concern for potential posterior ischemia versus VBI versus dehydration/hyperglycemia associated symptoms. In addition, hyperglycemia noted, although partially explained by recent use of prednisone, may
require treatment for potential new onset diabetes.
*Pulse Oximetry
SaO2: 94
Patient hypoxic: no
*Critical Care Note
Total Time (30-74mins, 75-104mins- exclusive of procedures): Not Applicable
ED Attending Note
-
Portions of this chart may have been created with voice recognition software.� Occasional wrong word or��sound alike� substitutions may have occurred due to the inherent limitations of voice recognition software.
Discharge Plan
Departure
Patient Disposition: Admit
Date of Disposition: 04/25/25
Time of Disposition: 18:19
Admit to: Telemetry
Presentation/result/management discussed w/ accepting MD/DO: Hospitalist
Discharge Problem:
Hyperglycemia, Ataxia
Interventions
Interventions:
*General Assessment Last Done: 04/25/25 13:55
*Neglect/Abuse Screening Last Done: 04/25/25 13:55
*ED COVID-19 Vaccine History Last Done: 04/25/25 13:55
*ED Influenza Vaccine History Last Done: 04/25/25 13:55
[facility] Risk Assessment Tool Last Done: 04/25/25 13:50
*Risk Screen - Suicide (C-SSRS) Last Done: 04/25/25 13:55
*Nursing Disposition Last Done: 04/25/25 20:09
ED- Neurological Assessment Last Done: 04/25/25 17:19
Discharge Date and Time
Discharge Date/Time: 04/25/25 20:10
[2025-04-25] MEDS: NSS 1000 IV ×2 (17:25→20:47)
[2025-04-25 17:26] LABS: Magnesium 2.3 mg/dl (1.6-2.3)
--- NOTE | 2025-04-25 18:42 | HPS.HSE ---
Family Physician
-
Family Physician: NOT KNOW UNKNOWN - PT DOES
Chief Complaint
-
Weakness and Fatigue
History of Present Illness
Patient is an 85 y/o female past medical history of Factor 5 Leiden and prior DVT on anticoagulation, and diet controlled diabetes mellitus who presents with generalized weakness and fatigue. Patient reports she has been dealing with leg pain
thought to be related to gout for which she has taken two courses of prednisone over the last month with last dose yesterday. She reports today she decided to take her blood sugars as she was feeling unwell and found it to be elevated. She check it
again later and notes it was higher prompting her to come to the emergency department for evaluation. Patient also notes difficulty ambulating over the past few weeks. She states she seems to always walk to the left, and notes a difficulty
controlling her left leg.
Medical History
Past Medical History
Past Medical History: Reports Other
Additional Past Medical History:
Factor 5 Leiden
Diabetes Mellitus, Type II (Diet - Controlled)
BELCHER
Hyperlipidemia
Restless Leg Syndrome
Past Surgical History: Reports Other
Additional Past Surgical History:
Right Knee Arthroscopy
Right Total Knee Replacement
Bladder Suspension
KEITH Appendectomy
Social History
Tobacco: Non-smoker
Family History
Family History: Not pertinent
Allergies / Home Medications
Allergies reflects when Allergies were last updated in [employer].
Home Medications with original date entered in [employer]
Allergy/Medication List:
Allergies
Allergy/AdvReac Type Severity Reaction Status Date / Time
oxycodone Allergy passes out Verified 03/27/25 11:21
Home Medications
magnesium oxide 500 mg capsule 500 mg PO DAILY Supplement 04/09/21
ropinirole 1 mg tablet 1 mg PO BID Neurological Condition 04/10/21
acetaminophen 500 mg tablet 500 mg PO DAILYPRN PRN mild pain 04/25/25
acetaminophen 500 mg tablet 500 mg PO HS 04/25/25
cyclosporine 0.05 % eye drops in a dropperette 1 drp BOTH EYES BID 04/25/25
ezetimibe 10 mg tablet 10 mg PO DAILY 04/25/25
ydfqqsrq-xfj-gckw-FA-Ca carb-vit K 18 mg iron-400 mcg-500 mg tablet 1 tab PO DAILY 04/25/25
mupirocin 2 % topical ointment 1 applic topical HS apply to right leg 04/25/25
rivaroxaban 20 mg tablet (Xarelto) 20 mg PO DAILY 04/25/25
ropinirole 4 mg tablet,extended release 24 hr 4 mg PO QPM 04/25/25
Review of Systems
-
A 12 point ROS was completed and negative except as noted: Yes
Constitutional: Denies Fever
Respiratory: Denies Cough or Trouble Breathing
Cardiac: Denies Chest Pain or Palpitations
Physical Exam
Vital Signs
Vital Signs
Temp Pulse Resp BP Pulse Ox
98.6 F 56 15 181/90 98
04/25/25 13:53 04/25/25 17:30 04/25/25 17:49 04/25/25 17:00 04/25/25 17:49
Physical Exam
General: Comfortable and Conversant
HEENT: Anicteric and Moist mucous membranes
Respiratory: Clear and Non Labored Respirations
Cardiac: S1/S2 and Regular Rhythm
GI: Soft and Non Distended
Rectal: Deferred by Provider
Musculoskeletal: No Clubbing, No Cyanosis and No Edema
Skin: Warm and Dry
Neuro: Awake, Alert, Oriented and No Motor Deficits; No Slurred Speech or Facial Droop
Laboratory Results
-
04/25/25 14:02
04/25/25 14:02
Laboratory Results
Total Bilirubin 0.7 mg/dl (0.2-1.3) 04/25/25 14:02
AST 29 U/L (14-36) 04/25/25 14:02
ALT 52 U/L (0-35) H 04/25/25 14:02
Alkaline Phosphatase 98 U/L (38-126) 04/25/25 14:02
Data Reviewed
-
Lab Data: Labs Reviewed by me
Impression/Plan
-
Steroid Induced Hyperglycemia
-Patient reports HgbA1c typically runs in the mid 6s, with last HgbA1c 6.6 in Jan/Feb 2025
-Continue IVFs
-Monitor sugars and continue coverage insulin
-Would hold on starting standing medication until repeat HgbA1c results
Ambulatory Dysfunction
-Consult PT/OT
-Consider Brain MRI if patient remains ataxic after correction of glucose
Acute Renal Insufficiency
-Continue IVFs
-Recheck Creatinine in AM
Pseudohyponatremia
-Corrected sodium 137
Restless Leg Syndrome
-Continue
Factor 5 Leiden / Hx Recurrent DVT
-Continue Xarelto
Code Status: Full Code
--- NOTE | 2025-04-25 19:13 | W.PN.UPDATE ---
Update Note
Progress Note Update
This note serves as an addendum to the H&P by offset plate preparation supervisor Duong SNELL
HPI�
85F prediabetic
PMHX: Hypercholesterolemia, Restless leg syndrome, Factor V Leiden, DVT LLE, on Xarelto
Seen at ER :
- 2d HX generalized weakness, fatigue, feeling of 'wobbly' sensation.
- Home AccuCheck 300 in AM then greater than 600 on multiple occasions.
- PCP suggest evaluation at ER
- s/p 7-day of tapered dose of prednisone recently secondary to 'inflammation' in her legs.
Of note: reports thirsty and drinking of water at home.
ROS:
Denies fever or chills.
Denies coughing.
Denies chest pain or shortness of breath.
Denies nausea, vomiting, or diarrhea.
Denies dizziness.
Relevant VS
Temp Pulse Resp BP Pulse Ox
98.6 F 65 16 142/110 95
04/25/25 13:53 04/25/25 18:00 04/25/25 18:00 04/25/25 18:00 04/25/25 18:00
PE
Gen: NAD
HEENT: moist OM
Neck: supple
Lungs: CTA
Cor: RRR S1S2
Abdomen:� soft NT NG NRT
ANIMAL DAYCARE PROVIDER: AAO3 NFND , accurate rapid alernating movements and coordination
MS: no edema
Psych: interactive and cooperative
Relevant Data�
04/25/25
14:02
WBC 7.3
Hgb 15.1
Plt Count 190
VBG pH 7.39
VBG pCO2 49 H
VBG pO2 47
VBG HCO3 29.7 H
07/10/23 11/12/23 04/25/25
07:49 07:51 14:02
Sodium 131 L
Potassium 4.6
BUN 35 H
Creatinine 1.1 H
Hemoglobin A1c 8.1 H 6.5 H Pending
04/25/25 04/25/25
13:56 19:20
POC Glucose 423 H 340 H
HCT
1. SEVERE WHITE MATTER LEUKOARAIOSIS in the parietal lobes.
2. Moderate white matter leukoaraiosis in the frontal lobes.
3. Mild to moderate diffuse cerebral and cerebellar volume loss.
Last hospitalist admission: 05/07/2021 - 05/08/2021
DISCHARGE DIAGNOSES:
1. Vertigo.
2. Right total knee arthroplasty 05/03/2021.
3. Hypertension.
4. Restless leg syndrome.
ASSESSMENT & PLAN
Pending Rx reconciliation
Uncontrol Hyperglycemia suspect prednisone induced Hyperglycemia in setting of prediabetic patient
No Anion Gasp
Last A1 C 6.6 in Jan 2025
- Recently finished PO Prednisone for inflammatory arthritis ? Gout yesterday
- NovoLog 10 U now
- add ISS low
- FU A1C
Balance dysfunction but denied Fall palpable metabolic origin
Use walker at baseline
NEG HCT for acute process
No signs of cerebella deficit
- PT/OT
- To consider brain MRI if balance if not improve
HX factor V Leiden def
HX recurrent DVT
- chr Xarelto
DVT Px: chronic Xarelto
Full code
OBS TLM
[2025-04-25 19:22] LABS: Glucose - Point of Care 340 mg/dl (70-99)
[2025-04-25] MEDS: NOVOLOG vial 10 UNITS SC (19:22)
[2025-04-25] MEDS: REQUIP 1 MG PO (20:47)
[2025-04-25 21:40] LABS: Glucose - Point of Care 153 mg/dl (70-99)
[2025-04-26 07:50] VITALS: BP 155/85
[2025-04-26 08:05] LABS: Glucose - Point of Care 106 mg/dl (70-99)
[2025-04-26 08:51] LABS: Glycohemoglobin (HgbA1c) 9.9 % (4.0-5.9)
[2025-04-26] MEDS: NOVOLOG FLEXPEN-LOW RESISTANCE SC (10:03)
[2025-04-26] MEDS: XARELTO 20 MG PO (10:28)
[2025-04-26] MEDS: ZETIA 10 MG PO (10:28)
[2025-04-26] MEDS: REQUIP 1 MG PO (10:33)
[2025-04-26] MEDS: LANTUS 0.06 UNITS SC (10:39)
[2025-04-26 10:43] LABS: Blood Urea Nitrogen 19 mg/dl (7-17); Calcium 8.4 mg/dl (8.4-10.2); Carbon Dioxide 28 mmol/L (22-30); Chloride 103 mmol/L (98-107); Estimated Creatinine Clearance 41 ml/min; Glucose 220 mg/dl (70-99); Potassium 4.3 mmol/L (3.5-5.1); Sodium 135 mmol/L (135-145); eGFR > 60.00
--- NOTE | 2025-04-26 11:11 | CM ---
Addendum entered by Yuridia Evans 04/26/25 12:55:
Patient seen with daughter, for d/c today.
CM discussed therapy recommendations of home health, patient reports she is scheduled to start therapy through [facility].
Dtr to transport home.
Plan; home no needs
Original Note:
CM reviewed chart, patient seen bedside, initial assessment completed.
Patient is an 85 y/o female past medical history of Factor 5 Leiden and prior DVT on anticoagulation, and diet controlled diabetes mellitus who presents with generalized weakness and fatigue.
Patient resides independently in at [facility].
Patient reports there is elevator access. Patient uses walker or cane for ambulation.
Patient denies VN/SNF.
PCP Cain Tolentino, Pharmacy [facility], confirms prescription coverage.
BARONE form verbally reviewed, provided with copy, placed in chart.
Therapy consulted- will follow for recommendations.
Plan; home with VN vs SNF, watch for PT recs
[2025-04-26 11:21] VITALS: O2SAT 97
[2025-04-26 11:50] VITALS: BP 132/74
--- NOTE | 2025-04-26 12:17 | W.PN.HOSP.TC ---
Today's Communication/Plan
-
Nutrition consult
Diabetes education consult
Discharge
Assessment / Plan
Assessment / Plan
Gen-AAOx3, NAD
HEENT-NC, AT, anicteric, clear oral mm
Neck-supple
CV-reg, no M, +S1/S2
Lungs-clear B/L
Abd-soft, NT, ND
Ext-no edema
Musculoskeletal-no cyanosis, clubbing
Skin-warm and dry
Neuro-grossly non-focal
Psych-calm, cooperative
Gait dysfunction -suspect due to volume depletion due to hyperglycemia. Clinically improved. Evaluated by PT/OT and cleared for discharge.
JANAY - prerenal azotemia, due to volume depletion due to hyperglycemia, osmotic diuresis.
Azotemia resolved with IV fluid administration.
DM2 with hyperglycemia - previously had impaired fasting glucose. Never been on DM meds.
HgbA1c 9.9%.
Start Lanuts, Novolog. Diabetic diet. Nutrition consult, Diabetes education consult.
Close outpatient follow up with PCP.
Essential HTN -stable.
Hyperlipidemia
BELCHER
RLS
Hx DVTs/Factor V Leiden - continue Xarelto.
Full code
Dispo - med stable for discharge today after diabetes education consult.
Follow up with PCP next week.
35 minutes spent in discharge process.
Anticipated Discharge: Today
Subjective/Interval History
-
Date of Service: April 26, 2025
Patient seen/examined, no complaints.
Objective Data
-
Labs:
Laboratory Results
04/26/25 04/26/25
07:59 09:38
Sodium Cancelled 135
Potassium Cancelled 4.3
Chloride Cancelled 103
Carbon Dioxide Cancelled 28
BUN Cancelled 19 H
Creatinine Cancelled 0.8
Glucose Cancelled 220 H
Calcium Cancelled 8.4
Vital Signs:
Vital Signs
Temp Pulse Resp BP Pulse Ox
98.3 F 66 18 132/74 97
04/26/25 11:50 04/26/25 11:50 04/26/25 11:50 04/26/25 11:50 04/26/25 11:50
I&O
04/25/25 04/26/25 04/27/25
06:59 06:59 06:59
Intake Total 920 / 920
Balance 920 / 920
Review of Systems
-
History Source: Patient
All other systems: Reviewed and negative
--- NOTE | 2025-04-26 12:33 | W.DS.TRANS ---
DC Summary - Senior Java Software Engineer
-
Discharge Instructions:
Discharge Diagnosis/Procedures Hyperglycemia, uncontrolled diabetes
Diet Diabetic, Carb Controlled
Activity As tolerated
Driving Restrictions As prior to admission
Bathing Restrictions None
Instructions:
Stand-Alone Forms:
Changes to Home Medications: No
Discharge Medications:
DC Medications w/original date entered in [employer]
magnesium oxide 500 mg capsule 500 mg PO DAILY Supplement 04/09/21
ropinirole 1 mg tablet 1 mg PO BID Neurological Condition 04/10/21
acetaminophen 500 mg tablet 500 mg PO DAILYPRN PRN mild pain 04/25/25
acetaminophen 500 mg tablet 500 mg PO HS Pain 04/25/25
cyclosporine 0.05 % eye drops in a dropperette 1 drp BOTH EYES BID Eye Condition 04/25/25
ezetimibe 10 mg tablet 10 mg PO DAILY Allergies 04/25/25
phukfkna-xxl-uxrm-FA-Ca carb-vit K 18 mg iron-400 mcg-500 mg tablet 1 tab PO DAILY Supplement 04/25/25
mupirocin 2 % topical ointment 1 applic topical HS apply to right leg 04/25/25
rivaroxaban 20 mg tablet (Xarelto) 20 mg PO DAILY Blood Clot Prevention/Tx 04/25/25
ropinirole 4 mg tablet,extended release 24 hr 4 mg PO QPM Neurological Condition 04/25/25
insulin aspart U-100 100 unit/mL (3 mL) subcutaneous pen 3 unit (0.03 mL) SC AC #15 mL 04/26/25
insulin glargine 100 unit/mL (3 mL) subcutaneous pen (Lantus Solostar U-100 Insulin) 6 unit (0.06 mL) SC DAILY #3 mL 04/26/25
pen needle, diabetic 32 gauge x ' (Rebekah Pen Needle) #200 ea 04/26/25
Home Medication Changes
Pending Results: No
[2025-04-26 13:09] LABS: Glucose - Point of Care 186 mg/dl (70-99)
[2025-04-26] MEDS: NOVOLOG FLEXPEN 3 UNITS SC (13:36)
[2025-04-26] MEDS: NOVOLOG FLEXPEN-LOW RESISTANCE 1 UNITS SC (13:36)
--- NOTE | 2025-04-26 14:16 | PTCARENOTE ---
Addendum entered by Ene Aleman RN 04/26/25 15:59:
Met with patient, family and RN Abigail again. Reviewed that patient is prescribed 3 units Novolog prior to meals, she is take 15 minutes prior meals and to also check blood sugar before all meals. If blood sugar is < 70 mg/dL do not take Novolog
and do not take if not eating a meal. Patient states she eats 3 meals per day. Reviewed again that she is also prescribed 6 units long acting lantus and to take at same time daily. She and family verbalized understanding.
Addendum entered by Ene Aleman RN 04/26/25 14:47:
provided RN with insulin pen needles to assist patient with self administering insulin if dosing prior to discharge.
Original Note:
04/26/2025 DIABETES EDUCATION CONSULT
I met with patient to review diabetes management, she had prediabetes for years and her A1c in February was 6.6%. Her PCP is Dr. Nik Armando in [place]. I explained that she is prescribed Lantus on discharge, and the prednisone she was
recently taking contributed to her elevated blood sugar. Encouraged patient to follow up with PCP for post d/c appointment and to monitor medication and blood glucose levels
I educated on physiology of T2D, organ damage, managing with medications, monitoring BG, nutrition, activity, sleep and managing stress. I reinforced signs of hyperglycemia, hypoglycemia and hypoglycemia protocol; BS parameters and recommended HbA1c
goals, glucometer instructions, glucose tracker, medic alert bracelet and outpatient DSME program. Written material provided.
She declined glucometer instructions as she has been checking in the past. States she recently stopped checking because she is tired of sticking her finger. Provided verbal instructions on proper blood sugar testing technique
I educated and demonstrated on insulin injection technique, timing, and storage. Discussed long acting insulin; onset/peak/duration, and encouraged her to administer self injections with RN supervision while admitted. Discussed normal target
glucose ranges and a monitoring schedule once daily to review with her PCP.
Provided list of endocrinologists if desired, to contact insurance company to verify in network status. Patient verbalized understanding.
[2025-04-26 15:49] VITALS: BP 125/79
--- NOTE | 2025-04-26 17:10 | PTCARENOTE ---
Pt dc'd to home with daughter via her car. Much insulin and accucheck education provided. Pt verbalized understanding, also discussed with daughter. Pt iv and tele removed, all belongings from [facility] with pt.
== END 2025-04-26 16:58 | disposition home or self-care (01) ==
LOC: 4 WEST ACU 19:26
PROVIDERS: Emergency Medicine; Physician Assistant; ADMITTING PHYSICIAN Internal Medicine; ATTENDING PHYSICIAN Hospitalist; EMERGENCY PHYSICIAN Emergency Medicine; FAMILY PHYSICIAN Internal Medicine
DX: E11.65 Type 2 diabetes mellitus with hyperglycemia (principal); R27.0 Ataxia, unspecified; N17.9 Acute kidney failure, unspecified; I10 Essential (primary) hypertension; Z79.01 Long term (current) use of anticoagulants; Z86.718 Personal history of other venous thrombosis and embolism; E86.9 Volume depletion, unspecified; D68.51 Activated protein C resistance; G25.81 Restless legs syndrome; E78.00 Pure hypercholesterolemia, unspecified; K75.81 Nonalcoholic steatohepatitis (NASH); T38.0X5A Adverse effect of glucocorticoids and synthetic analogues, initial encounter; R79.89 Other specified abnormal findings of blood chemistry
CPT/HCPCS: 70450; 80048; 80053; 82010; 82805; 82962; 83036; 83735; 84443; 85025; 96360; 97162; 97166; 99285; G0378